=== PATIENT | female | born 1970 | race Caucasian/White ===

== ENCOUNTER 2018-04-07 12:16 | Emergency (ER) | payer OTHER ==
[~2018-04-07] VITALS: Ht 165.1 cm; Wt 54.4 kg
[2018-04-07] MEDS ORDERED: OXYCODONE HCL 55 MG PO (13:16)
[2018-04-07] MEDS ORDERED: ONDANSETRON HCL4 M2 PO (13:17)
[2018-04-07] MEDS ORDERED: TYLENOL EXTRA500 MG PO (13:17)
[2018-04-07] MEDS ORDERED: SENNA8.6 MG PO (13:17)
[2018-04-07] MEDS ORDERED: ASPIR 8181 MG PO (13:18)
[2018-04-07 13:25] VITALS: BP 92/56
== END 2018-04-07 13:28 | disposition home or self-care (01) ==
LOC: ER 12:16
DX: R20.2 Paresthesia of skin (principal); Z96.652 Presence of left artificial knee joint; Z88.8 Allergy status to other drugs, medicaments and biological substances